=== PATIENT | male | born 1960 | race Caucasian/White ===

== ENCOUNTER 2023-10-08 12:59 | Emergency (ER) | payer BC, OTHER ==
[2023-10-08 13:09] VITALS: BP 136/74; PULSE 77; RESP 18; TEMP 98.7; BMI 23.5
[2023-10-08] MEDS ORDERED: DIPHTH,PERTUSS(ACELL),TET 0.5 ML DISP.SYRIN IM ONE (13:36)
[2023-10-08] MEDS: DIPHTH,PERTUSS(ACELL),TET 0.5 ML DISP.SYRIN IM ONE (13:39)
== END 2023-10-08 14:34 | disposition home or self-care (01) ==
LOC: JER 12:59
PROC: 0XQMXZZ Repair Left Thumb, External Approach (ICD-10-PCS; principal; 2023-10-08)
PROC: 3E0234Z Introduction of Serum, Toxoid and Vaccine into Muscle, Percutaneous Approach (ICD-10-PCS; 2023-10-08)
DX: S61.112A Laceration without foreign body of left thumb with damage to nail, initial encounter (principal); W26.8XXA Contact with other sharp object(s), not elsewhere classified, initial encounter; Z23 Encounter for immunization
CPT/HCPCS: 12001-25; 90471; 90715; 99284-25

== ENCOUNTER 2023-10-20 07:40 | Emergency (ER) | payer OTHER ==
[2023-10-20 07:46] VITALS: BP 115/76; PULSE 61; RESP 18; TEMP 98.7; BMI 23.5
[2023-10-20] MEDS ORDERED: BACITRACIN ZINC 15 GM TUBE TOPICAL OINTMENT ONE (08:18)
[2023-10-20] MEDS: BACITRACIN ZINC 15 GM TUBE TOPICAL OINTMENT TP ONE (08:22)
== END 2023-10-20 08:05 | disposition home or self-care (01) ==
LOC: JER 07:40 → JERFT 07:40
DX: Z48.02 Encounter for removal of sutures (principal)
CPT/HCPCS: 99281-25